=== PATIENT | male | born 1965 | race African-American/Black ===

== ENCOUNTER 2021-06-19 09:17 | Observation (INO) ==
[2021-06-19] MEDS ORDERED: Dexamethasone IV 4 MG/ML VIAL 1 ml VIAL IV SLOW PU ONE (10:00)
[2021-06-19] MEDS ORDERED: Albuterol/Ipratropium NEB.SOL (2.5/0.5 MG) 3 ML NEB.SOLN INH ONE ×3 (10:00→13:59)
[2021-06-19] MEDS ORDERED: Magnesium Sulfate 2 gm BAG 2 GM/50 ML BAG IVPB ONE (10:11)
[2021-06-19 10:54] LABS: ABS Basophils 0.1 10^3/ul (0-0.2); ABS Lymphocytes 1.8 10^3/ul (1.0-4.8); ABS Monocytes 0.4 10^3/ul (0-0.8); ABS Neutrophils 4.2 10^3/ul (1.5-7.7); Eosinophil % 0.3 %; Hematocrit 37 % (42-52); Hemoglobin 11.8 g/dL (14.0-18.0); Lymphocyte % 27.6 %; Mean Corpuscular HGB Conc 32 g/dL (31-36); Mean Corpuscular Hemoglobin 29 pg (27-31); Mean Corpuscular Volume 89 fL (80-94); Mean Platelet Volume 8.2 fL (7.4-10.4); Nucleated Red Blood Cells % 0.2; Platelet Count 293 10^3/uL (150-450); Red Cell Distribution Width 16 % (10-15); White Blood Count 6.6 10^3/uL (3.5-10.8)
[2021-06-19 11:12] LABS: ALT 15 U/L (7-52); Albumin/Globulin Ratio 1.4 (1-3); Alkaline Phosphatase 55 U/L (35-149); Blood Urea Nitrogen 13 mg/dL (6-24); CO2 Carbon Dioxide 29 mmol/L (22-32); Calcium 9.1 mg/dL (8.6-10.3); Chloride 108 mmol/L (101-111); Globulin 2.9 g/dL (2-4); Glucose 82 mg/dL (70-100); Sodium 143 mmol/L (135-145); Total Protein 6.9 g/dL (6.4-8.9)
[2021-06-19 11:13] LABS: Troponin I 0.02 ng/mL (<0.03)
[2021-06-19 11:52] LABS: Anion Gap 6 mmol/L (2-11)
[2021-06-19] MEDS ORDERED: Iohexol 350 (CONTRAST) 500 ML MDV IV ONE (12:20)
[2021-06-19 12:35] LABS: PCO2 Arterial 45 mmHg (35-45); PO2 Arterial 104 mmHg (80-100)
[2021-06-19 14:28] LABS: Potassium Redraw 4.3 mmol/L (3.5-5.0)
[2021-06-19 14:29] LABS: Rapid COVID-19 Molecular Undetected (Undetected)
[2021-06-19] MEDS ORDERED: Albuterol HFA INHALER 8 gm MDI INH PRN (17:12)
[2021-06-19] MEDS ORDERED: Ipratropium HFA INHALER(NF) (ALTERNATIVE = NEBS) INH SCH ×3 (18:00→19:00)
[2021-06-19] MEDS ORDERED: Albuterol HFA INHALER 8 gm MDI INH SCH ×2 (18:00→19:00)
[2021-06-19] MEDS: SPIRIVA Respimat (tiotropium) 2.5 mcg/inh Inhaler INH SCH (20:11)
[2021-06-19] MEDS: Azithromycin 500 mg/250 ml NS 500 MG/250 ML BAG IVPB SCH (20:17)
[2021-06-19] MEDS: Budesonide NEB 0.5 MG/2 ML NEB.SOLN INH SCH (20:30)
[2021-06-19] MEDS: Olodaterol Inhaler MDI INH SCH (21:58)
[2021-06-19] MEDS: Bictegravir/Emtricit/Tenofov 1 TABLET PO SCH (23:07)
[2021-06-20] MEDS: Albuterol HFA INHALER 8 gm MDI INH SCH ×6 (01:37→19:34)
[2021-06-20 06:06] LABS: Hematocrit 31 % (42-52); Hemoglobin 10.2 g/dL (14.0-18.0); Mean Corpuscular HGB Conc 33 g/dL (31-36); Mean Corpuscular Hemoglobin 29 pg (27-31); Mean Corpuscular Volume 89 fL (80-94); Mean Platelet Volume 7.6 fL (7.4-10.4); Platelet Count 212 10^3/uL (150-450); Red Blood Count 3.47 10^6 /uL (4.18-5.48); Red Cell Distribution Width 16 % (10-15); White Blood Count 8.1 10^3/uL (3.5-10.8)
[2021-06-20 06:25] LABS: Calcium 8.6 mg/dL (8.6-10.3); Potassium 3.8 mmol/L (3.5-5.0)
[2021-06-20 06:29] LABS: ABS Basophils 0.1 10^3/ul (0-0.2); ABS Lymphocytes 1.6 10^3/ul (1.0-4.8); ABS Monocytes 0.6 10^3/ul (0-0.8); ABS Neutrophils 5.8 10^3/ul (1.5-7.7); Eosinophil % 0.1 %; Lymphocyte % 19.6 %; Nucleated Red Blood Cells % 0.1
[2021-06-20] MEDS: SPIRIVA Respimat (tiotropium) 2.5 mcg/inh Inhaler INH SCH (07:26)
[2021-06-20] MEDS: Budesonide NEB 0.5 MG/2 ML NEB.SOLN INH SCH (08:41)
[2021-06-20 09:07] LABS: C Reactive Protein 6.05 mg/L (<8.01)
[2021-06-20] MEDS: Vitamin THERAPEUTIC TAB PO SCH (10:10)
[2021-06-20] MEDS: Olodaterol Inhaler MDI INH SCH (19:33)
[2021-06-20] MEDS: Azithromycin 500 mg/250 ml NS 500 MG/250 ML BAG IVPB SCH (20:54)
[2021-06-20] MEDS: Bictegravir/Emtricit/Tenofov 1 TABLET PO SCH (21:01)
[2021-06-21] MEDS: Albuterol HFA INHALER 8 gm MDI INH SCH ×4 (00:32→11:08)
[2021-06-21] MEDS: SPIRIVA Respimat (tiotropium) 2.5 mcg/inh Inhaler INH SCH (07:57)
[2021-06-21 09:53] LABS: Hematocrit 33 % (42-52); Hemoglobin 10.8 g/dL (14.0-18.0); Mean Corpuscular HGB Conc 33 g/dL (31-36); Mean Corpuscular Hemoglobin 29 pg (27-31); Mean Corpuscular Volume 90 fL (80-94); Mean Platelet Volume 7.8 fL (7.4-10.4); Platelet Count 230 10^3/uL (150-450); Red Cell Distribution Width 17 % (10-15); White Blood Count 7.5 10^3/uL (3.5-10.8)
[2021-06-21 09:54] LABS: ABS Lymphocytes 2.4 10^3/ul (1.0-4.8); ABS Monocytes 0.5 10^3/ul (0-0.8); ABS Neutrophils 4.6 10^3/ul (1.5-7.7); Eosinophil % 0.1 %; Lymphocyte % 31.3 %; Nucleated Red Blood Cells % 0.2
[2021-06-21 10:08] LABS: Calcium 8.8 mg/dL (8.6-10.3); Potassium 3.7 mmol/L (3.5-5.0)
[2021-06-21 10:21] LABS: RBC Morphology Normal (Normal)
[2021-06-21] MEDS: Vitamin THERAPEUTIC TAB PO SCH (10:25)
[2021-06-21 12:02] VITALS: BP 167/108
== END 2021-06-21 14:30 | disposition home or self-care (01) ==
LOC: MED 09:17 → ED 09:17 → SUATTDRO 16:48 → MED 22:40
PROVIDERS: ADMIT Internal Medicine; ATTEND Hospitalist

== ENCOUNTER 2021-06-22 09:30 | Observation (INO) ==
[2021-06-22 10:08] LABS: ABS Basophils 0.1 10^3/ul (0-0.2); ABS Lymphocytes 2.4 10^3/ul (1.0-4.8); ABS Monocytes 0.7 10^3/ul (0-0.8); ABS Neutrophils 4.3 10^3/ul (1.5-7.7); Eosinophil % 0.2 %; Hematocrit 34 % (42-52); Lymphocyte % 32.1 %; Mean Corpuscular HGB Conc 33 g/dL (31-36); Mean Corpuscular Hemoglobin 29 pg (27-31); Mean Corpuscular Volume 89 fL (80-94); Mean Platelet Volume 7.7 fL (7.4-10.4); Nucleated Red Blood Cells % 0.1; Platelet Count 232 10^3/uL (150-450); Red Blood Count 3.79 10^6 /uL (4.18-5.48); Red Cell Distribution Width 17 % (10-15); White Blood Count 7.5 10^3/uL (3.5-10.8)
[2021-06-22] MEDS ORDERED: Albuterol HFA INHALER 8 gm MDI INH ONE (10:08)
[2021-06-22 10:26] LABS: Troponin I 0.01 ng/mL (<0.03)
[2021-06-22 10:28] LABS: Albumin 4.1 g/dL (3.2-5.2); Albumin/Globulin Ratio 1.6 (1-3); C Reactive Protein 1.69 mg/L (<8.01); Globulin 2.5 g/dL (2-4); Potassium 3.5 mmol/L (3.5-5.0); Total Bilirubin 0.3 mg/dL (0.2-1.0); Total Protein 6.6 g/dL (6.4-8.9)
[2021-06-22] MEDS ORDERED: Albuterol HFA INHALER 8 gm MDI INH PRN (15:00)
[2021-06-22] MEDS ORDERED: Levalbuterol 1.25MG/0.5ML NEB.SOL INH PRN (15:31)
[2021-06-22 17:08] LABS: Urine Benzodiazepine Screen None Detected (None Detect); Urine Cannabinoids Screen None Detected (None Detect); Urine Opiates Screen None Detected (None Detect)
[2021-06-22 19:21] LABS: Rapid COVID-19 Molecular Undetected (Undetected)
[2021-06-22] MEDS ORDERED: NF: Bictegravir/Emtricit/Tenofov 1 TABLET PO SCH (21:00)
[2021-06-22] MEDS ORDERED: Olodaterol Inhaler MDI INH SCH (21:00)
[2021-06-23] MEDS: Budesonide NEB 0.5 MG/2 ML NEB.SOLN INH SCH ×2 (00:58→08:33)
[2021-06-23] MEDS ORDERED: Vitamin THERAPEUTIC TAB PO SCH (09:00)
[2021-06-23 12:38] VITALS: BP 147/94
== END 2021-06-23 14:50 | disposition home or self-care (01) ==
LOC: ED 09:30 → MEDTELE 09:30
PROVIDERS: ADMIT Hospitalist; ATTEND Hospitalist